=== PATIENT | female | born 1940 | race Caucasian/White ===

== ENCOUNTER 2017-01-16 16:47 | Inpatient (IN) | payer OTHER ==
[~2017-01-16] VITALS: Ht 182.9 cm; Wt 56.2 kg
[~2017-01-16 16:47] MED LIST: ALLEGRA ALLERG180 MG PO; ALPRAZOLAM1 MG PO; ASPIRIN325 MG PO; AXERT12.5 MG PO; CALCIUM 500 MG1 EACH PO; CELEXA20 MG PO; CELEXA40 MG PO; CITALOPRAM HBR40 MG PO; COLACE100 MG PO; DAILY VALUE1 EACH PO; FEXOFENADINE H180 MG PO; FLORINEF ACETA0.1 MG PO; FLUDROCORTISON0.1 M1 PO; HYDROCODON-ACE1 EAC8 PO; LETROZOLE2.5 MG PO; LORTAB 10-3251 EACH PO; LOTREL 5/201 CAPSULE PO; LOTRISONE15 GM TP; MEDROL4 MG PO; MIRALAX17 GM PO; NEXIUM40 MG PO; NICOTINE PATCH1 EAC2 TD; NORCO 10/3251 TABLET PO; OMEPRAZOLE20 MG PO; PERCOCET 5/31 TABLET PO; POLYETHYLENE GL17 GM PO; PRILOSEC OTC20 MG PO; PRILOSEC20 MG PO; PROMETHAZINE HC25 M1 PO; PROTONIX40 MG PO; RELPAX40 MG; RELPAX40 MG PO; Remove Nicotine Patch TD; SIMVASTATIN20 MG PO; SODIUM CHLORIDE1 G1 PO; SUMATRIPTAN SU100 MG PO; TOPROL XL50 MG PO; TRIAMCINOLONE A15 GM TP; VICODIN 5-3001 EACH PO; VICODIN,LORT1 TABLET PO; VITAMIN B-122000 MC1 PO; VITAMIN D1000 INTUN PO; VITAMIN D31000 UNI2 PO; VOLTAREN 1% GE100 GM TP; XANAX1 MG PO; ZOCOR20 MG PO; ZOFRAN ODT4 MG PO; ZOFRAN4 MG PO; ZUPLENZ4 MG PO
[2017-01-16 17:52] LABS: HEMATOCRIT 38.2 % (36.0-46.0); MCH 31.6 PG (29.0-34.0); MCHC 33.5 G/DL (30.0-36.0); MCV 94.3 FL (83-99); MEAN PLAT.VOLUME 10.4 uM^3 (9.5-12.4); PLATELET COUNT 226 K/uL (156-360); RBC DIS.WIDTH-CV 14.4 % (11.8-14.6); RBC DIS.WIDTH-SD 47.6 % (39-53); RED BLOOD COUNT 4.05 M/uL (3.80-5.20); WHITE BLOOD COUNT 7.7 K/uL (4.1-10.2)
[2017-01-16 18:03] LABS: CHLORIDE 87 MEQ/L (99-109); SODIUM 143 MEQ/L (136-147)
[2017-01-16 18:04] LABS: GLUCOSE 86 mg/dL (70-99)
[2017-01-16 18:08] LABS: GFR ESTIMATE (CALCULATED) > 59 mL/min/
[2017-01-16 18:09] LABS: UREA NITROGEN (BUN) 18 mg/dL (9-23)
[2017-01-16 18:11] LABS: CARBON DIOXIDE (BICARBONATE) > 40.0 mEq/L (20-31)
[2017-01-16 18:12] LABS: POTASSIUM 1.9 mEq/L (3.7-5.4)
[2017-01-16 18:32] LABS: D-DIMER ELISA 0.63 mg/L FEU (< 0.57)
[2017-01-16 18:39] LABS: TROP-I INTERPRETATION NEGATIVE; TROPONIN-I 0.01 ng/mL (0.0-0.30)
[2017-01-16] MEDS ORDERED: VITAMIN D32000 UNI1 PO (20:53)
[2017-01-16] MEDS ORDERED: LITE COAT ASPI325 M1 PO (20:53)
[2017-01-16] MEDS ORDERED: COLACE100 MG PO (20:55)
[2017-01-16] MEDS ORDERED: CYANOCOBALAM1000 MCG PO (20:55)
[2017-01-16 21:53] VITALS: BP 152/92
[2017-01-16 23:40] LABS: CHLORIDE 90 mEq/L (99-109); SODIUM 142 mEq/L (136-147)
[2017-01-16 23:42] LABS: GLUCOSE 96 mg/dL (70-99)
[2017-01-16 23:43] LABS: ANION GAP 9 MEQ/L (2-14)
[2017-01-16 23:45] LABS: GFR ESTIMATE (CALCULATED) > 59 mL/min/
[2017-01-16 23:46] LABS: UREA NITROGEN (BUN) 14 mg/dL (9-23)
[2017-01-16 23:52] LABS: CARBON DIOXIDE (BICARBONATE) > 40.0 mEq/L (20-31); POTASSIUM 2.2 mEq/L (3.7-5.4)
[2017-01-17] VITALS (7 sets, daily range): BP systolic 138–186; BP diastolic 87–110
[2017-01-17 07:32] LABS: HEMATOCRIT 39.6 % (36.0-46.0); MCH 30.1 PG (29.0-34.0); MCHC 31.8 G/DL (30.0-36.0); MCV 94.7 FL (83-99); MEAN PLAT.VOLUME 11.3 uM^3 (9.5-12.4); PLATELET COUNT 222 K/uL (156-360); RBC DIS.WIDTH-CV 14.6 % (11.8-14.6); RBC DIS.WIDTH-SD 50.4 % (39-53); RED BLOOD COUNT 4.18 M/uL (3.80-5.20); WHITE BLOOD COUNT 7.5 K/uL (4.1-10.2)
[2017-01-17 08:12] LABS: ANION GAP ND MEQ/L (2-14); CARBON DIOXIDE (BICARBONATE) > 40.0 MEQ/L (20-31); CHLORIDE 94 MEQ/L (99-109); GFR ESTIMATE (CALCULATED) > 59 mL/min/; GLUCOSE 82 mg/dL (70-99); POTASSIUM 2.8 MEQ/L (3.7-5.4); SAMPLE HEMOLYSIS CHECK 0; SAMPLE ICTERIC CHECK 0; SAMPLE LIPEMIA CHECK 0; SODIUM 147 MEQ/L (136-147); UREA NITROGEN (BUN) 11 mg/dL (9-23)
[2017-01-17 10:50] LABS: MAGNESIUM 2.1 mg/dl (1.3-2.7)
[2017-01-17 13:20] LABS: ANION GAP ND MEQ/L (2-14); CHLORIDE 96 MEQ/L (99-109); GFR ESTIMATE (CALCULATED) > 59 mL/min/; GLUCOSE 87 mg/dL (70-99); POTASSIUM 3.1 MEQ/L (3.7-5.4); SAMPLE HEMOLYSIS CHECK 0; SAMPLE ICTERIC CHECK 0; SAMPLE LIPEMIA CHECK 0; SODIUM 147 MEQ/L (136-147); UREA NITROGEN (BUN) 9 mg/dL (9-23)
[2017-01-17 13:34] LABS: CARBON DIOXIDE (BICARBONATE) > 40.0 MEQ/L (20-31)
[2017-01-17 18:33] LABS: ANION GAP 8 MEQ/L (2-14); CHLORIDE 96 MEQ/L (99-109); GFR ESTIMATE (CALCULATED) > 59 mL/min/; GLUCOSE 94 mg/dL (70-99); POTASSIUM 2.9 MEQ/L (3.7-5.4); SAMPLE HEMOLYSIS CHECK 0; SAMPLE ICTERIC CHECK 0; SAMPLE LIPEMIA CHECK 0; SODIUM 143 MEQ/L (136-147); UREA NITROGEN (BUN) 9 mg/dL (9-23)
[2017-01-18 00:07] VITALS: BP 149/87
[2017-01-18 04:11] VITALS: BP 133/76
[2017-01-18 09:16] VITALS: BP 147/96
[2017-01-18 10:47] LABS: ANION GAP 9 MEQ/L (2-14); CHLORIDE 97 MEQ/L (99-109); GFR ESTIMATE (CALCULATED) > 59 mL/min/; MAGNESIUM 2.2 mg/dl (1.3-2.7); SAMPLE HEMOLYSIS CHECK 0; SAMPLE ICTERIC CHECK 0; SAMPLE LIPEMIA CHECK 0; SODIUM 144 MEQ/L (136-147); UREA NITROGEN (BUN) 7 mg/dL (9-23)
[2017-01-18 10:48] LABS: GLUCOSE 142 mg/dL (70-99)
[2017-01-18 12:31] VITALS: BP 145/101
[2017-01-18 16:12] VITALS: BP 140/94
[2017-01-18 19:22] VITALS: BP 153/96
[2017-01-18 23:11] LABS: ALKALINE PHOSPHATASE 55 IU/L (3-129); ANION GAP 9 MEQ/L (2-14); CHLORIDE 99 MEQ/L (99-109); GFR ESTIMATE (CALCULATED) > 59 mL/min/; GLUCOSE 89 mg/dL (70-99); POTASSIUM 2.7 MEQ/L (3.7-5.4); SAMPLE HEMOLYSIS CHECK 0; SAMPLE ICTERIC CHECK 0; SAMPLE LIPEMIA CHECK 0; SODIUM 141 MEQ/L (136-147); TOTAL BILIRUBIN 0.6 MG/DL (0.0-1.0); UREA NITROGEN (BUN) 6 mg/dL (9-23)
[2017-01-19 01:05] VITALS: BP 162/97
[2017-01-19 03:53] VITALS: BP 154/89
[2017-01-19 07:22] LABS: ANION GAP 7 MEQ/L (2-14); CHLORIDE 100 MEQ/L (99-109); GFR ESTIMATE (CALCULATED) > 59 mL/min/; GLUCOSE 80 mg/dL (70-99); SAMPLE HEMOLYSIS CHECK 0; SAMPLE ICTERIC CHECK 0; SAMPLE LIPEMIA CHECK 0; SODIUM 142 MEQ/L (136-147); UREA NITROGEN (BUN) 5 mg/dL (9-23)
[2017-01-19 07:31] LABS: POTASSIUM 3.7 MEQ/L (3.7-5.4)
[2017-01-19 07:55] VITALS: BP 152/77
[2017-01-19 10:53] LABS: INTERNAL CONTROL VALID? YES
[2017-01-19 11:21] LABS: C DIFF TOXIN NEGATIVE (NEGATIVE)
[2017-01-19 11:26] VITALS: BP 155/79
[2017-01-19 11:27] LABS: PROBE CHECK PASS; SPECIMEN PROCESSING CONTROL PASS
[2017-01-19 13:04] LABS: INTERNAL CONTROL VALID? YES
[2017-01-19 15:42] VITALS: BP 145/91
[2017-01-19] MEDS ORDERED: POTASSIUM CHLO10 ME4 PO (16:31)
[2017-01-19] MEDS ORDERED: LISINOPRIL2.5 MG PO (16:40)
[2017-01-19] MEDS ORDERED: ZOFRAN4 MG PO (16:45)
== END 2017-01-19 18:07 | disposition home or self-care (01) | DRG 640 ==
LOC: EME 16:47 → 5SOUTH 19:54 → EDOF 19:54 → 5SOUTH 21:32
PROVIDERS: Emergency Medicine; Internal Medicine; Physician Assistant
DX: E87.6 Hypokalemia (principal); G93.49 Other encephalopathy; T38.0X5A Adverse effect of glucocorticoids and synthetic analogues, initial encounter; E27.1 Primary adrenocortical insufficiency; J96.10 Chronic respiratory failure, unspecified whether with hypoxia or hypercapnia; F32.9 Major depressive disorder, single episode, unspecified; F41.9 Anxiety disorder, unspecified; K21.9 Gastro-esophageal reflux disease without esophagitis; E78.00 Pure hypercholesterolemia, unspecified; Z87.891 Personal history of nicotine dependence; R41.89 Other symptoms and signs involving cognitive functions and awareness; I48.0 Paroxysmal atrial fibrillation; G43.909 Migraine, unspecified, not intractable, without status migrainosus; Z87.820 Personal history of traumatic brain injury; D32.0 Benign neoplasm of cerebral meninges; R26.2 Difficulty in walking, not elsewhere classified; R19.7 Diarrhea, unspecified; K59.00 Constipation, unspecified; E87.3 Alkalosis
CPT/HCPCS: 74176; 80048; 80048 91; 80053; 81003; 82272; 82436; 83630; 83735; 83880; 84100; 84132 91; 84133; 84300; 84484; 85027; 85379; 87493; 93005; 94640; 94799; 99281; 99285; J1644; J2405; J3480